=== PATIENT | female | born 1940 | race Caucasian/White ===

== ENCOUNTER 2018-02-12 11:26 | Outpatient (CLI) | payer MEDICARE | END 2018-02-12 11:27 | disposition home or self-care (01) | LOC: BICMAMMO 11:26 | PROVIDERS: ATTEND Internal Medicine Hematology & Oncology | DX: Z12.31 Encounter for screening mammogram for malignant neoplasm of breast (principal); Z85.3 Personal history of malignant neoplasm of breast | CPT/HCPCS: 77063; 77067 ==

== ENCOUNTER 2018-09-23 09:00 | Outpatient (CLI) | payer MEDICARE ==
--- NOTE | 2018-09-23 10:06 | ULT ---
RENAL ULTRASOUND: HISTORY: UTI. TECHNIQUE: Real-time imaging of the right and left kidneys was performed. FINDINGS: The right kidney measures 10.7 cm and the left kidney 12 cm in size. There are no signs of cyst or m ass. There is some mild left-sided hydronephrosis present. On the post void images, there is a pers istent cystic area in the lower pole region of the right renal pelvis. This could represent a parape lvic cyst. I do not believe this is really related to hydronephrosis. It is possible the left-sided changes are related to parapelvic cysts but are suspicious for hydronephrosis. These changes do per sist on the post void images. Post void bladder volume is 46 mL. IMPRESSION: Persistent, probable left-sided mild hydronephrosis, even after voiding. It is possible that these a re related to parapelvic cyst changes. If the patient is having left flank pain, further evaluation with CT may be helpful in assessment. POS: CORINE
== END 2018-09-23 09:01 | disposition home or self-care (01) ==
LOC: SCSULT 09:00
PROVIDERS: ATTEND Urology
DX: N39.0 Urinary tract infection, site not specified (principal)
CPT/HCPCS: 76770

== ENCOUNTER 2018-10-29 10:35 | Outpatient (CLI) | payer MEDICARE ==
--- NOTE | 2018-10-29 12:46 | BD ---
Exam: DEXA Bone Density Indications: Post-menopausal osteoporosis screening. Lumbar Spine: BMD (g/cm2) L1 1.034 T-Score: 0.4 L2 1.035 T-Score: 0.1 L3 1.175 T-Score: 0.8 L4 1.053 T-Score: -0.1 L1-L4 1.074 T-Score: 0.2 Femoral Neck: 0.832 T-Score: -0.2 Total Femur: 0.959 T-Score: -0.1 Prior total femur density on exam of 06-16-13 was recorded at 0.891. Previous total lumbar density on 06-16-13 was recorded at 1.020. Impression: Bone mineral density of the lumbar spine and femoral neck are both within normal range. POS: OFF
== END 2018-10-29 10:36 | disposition home or self-care (01) ==
LOC: BICMAMMO 10:35
PROVIDERS: ATTEND Family Medicine
DX: Z78.0 Asymptomatic menopausal state (principal)
CPT/HCPCS: 77080

== ENCOUNTER 2018-10-31 09:52 | Outpatient (CLI) | payer MEDICARE ==
--- NOTE | 2018-10-31 10:56 | CT ---
EXAM: Abdomen and pelvic CT scan with and without contrast: HISTORY: Hydronephrosis prior hysterectomy COMPARISON: None FINDINGS: Old granulomatous calcification right lower lobe. Liver: Unremarkable. Gallbladder:Multiple gallstones without evidence for acute cholecystitis. Pancreas:Unremarkable Spleen:Unremarkable. Adrenal glands:Unremarkable. Kidneys:No renal calculus or acute obstruction.Multiple bilateral renal parapelvic cysts. No renal hydronephrosis. Colonic diverticulosis without acute diverticulitis. 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 No CT evidence for acute appendicitis. The urinary bladder is unremarkable. No abscess, adenopathy, or abnormal fluid collection within the abdomen or pelvis. IMPRESSION: No evidence for renal hydronephrosis. Bilateral renal parapelvic cysts. Multiple gallstones without evidence for acute cholecystitis. Colonic diverticulosis without acute diverticulitis. Multilevel variable severity lumbar stenosis.
== END 2018-10-31 09:53 | disposition home or self-care (01) ==
LOC: CT 09:52
PROVIDERS: ATTEND Urology
DX: N13.39 Other hydronephrosis (principal); N39.0 Urinary tract infection, site not specified; N28.1 Cyst of kidney, acquired; K80.20 Calculus of gallbladder without cholecystitis without obstruction; K57.30 Diverticulosis of large intestine without perforation or abscess without bleeding; M48.061 Spinal stenosis, lumbar region without neurogenic claudication
CPT/HCPCS: 74178; 82565

== ENCOUNTER 2018-12-02 09:57 | Outpatient (CLI) | payer MEDICARE ==
--- NOTE | 2018-12-02 10:44 | ULT ---
EXAM: US Thyroid STANDARD PROVIDED CLINICAL HISTORY: Thyroid nodule COMPARISON: None FINDINGS: The right lobe of the thyroid gland measures 4.5 cm x 1.8 cm x 2 cm with the left lobe measuring 4.9 cm x 2.1 cm x 1.8 cm. The thyroid isthmus is thickened in the AP dimensions measuring 0.6 cm. Multiple scattered subcentimeter hypoechoic nodules are seen within the right lobe of thyroid gland w ith largest nodule seen in the superior pole measuring 0.9 cm. Three nodules are seen in the superior pole right lobe of thyroid gland with single nodule in the inferior pole right lobe of the t hyroid gland. There is a heterogeneous nodule seen in the region of the thyroid isthmus measuring 1.3 cm in greates t dimensions. Closely adjacent anechoic cystic lesion is present measuring 1.7 cm. Small hypoechoic nodule is seen in the superior pole left lobe of thyroid gland measuring 0.3 cm. The re is a calcified lesion demonstrating posterior shadowing within the superior pole measuring 0.9 cm in maximal dimensions. There is a dominant isoechoic nodule with peripheral hypoechoic rim seen wi thin the midportion left lobe of the thyroid gland which measures 1.4 cm in maximal dimensions. IMPRESSION: 1. TI-RADS level 5: Highly suspicious dominant nodule left lobe thyroid gland measuring 1.4 cm. Fine- needle aspiration is recommended. 2. Multinodular thyroid gland with multiple subcentimeter nodules including a calcified nodule in the left lobe of the thyroid gland.
== END 2018-12-02 09:58 | disposition home or self-care (01) ==
LOC: SCSULT 09:57
PROVIDERS: ATTEND Internal Medicine
DX: E04.2 Nontoxic multinodular goiter (principal)
CPT/HCPCS: 76536

== ENCOUNTER 2019-01-13 09:56 | Outpatient (CLI) | payer MEDICARE ==
--- NOTE | 2019-01-13 13:48 | RAD ---
CYSTOGRAM: HISTORY: Urinary frequency. Frequent urinary tract infection. COMPARISON: None. FINDINGS: The patient was administered 400 mL of contrast in a retrograde fashion. Contrast opacifies the urin carlton bladder, without filling defect. Multiple bladder diverticular are identified. The patient was able to void spontaneously. Visualized urethra is unremarkable. No evidence of reflux. Postvoid images demonstrate gallstones in the right upper quadrant. Bilateral diverticula are noted. No evidence of reflux. Right hip prosthesis is noted. Severe degenerative changes of the left hip. IMPRESSION: 1. No evidence of vesical ureteral reflux. 2. Multiple urinary bladder diverticulum. POS: OFF
== END 2019-01-13 09:57 | disposition home or self-care (01) ==
LOC: RAD 09:56
PROVIDERS: ATTEND Urology
DX: N95.2 Postmenopausal atrophic vaginitis (principal); R35.0 Frequency of micturition; N32.3 Diverticulum of bladder; Z87.440 Personal history of urinary (tract) infections
CPT/HCPCS: 51600; 74430

== ENCOUNTER 2019-02-13 10:03 | Outpatient (CLI) | payer MEDICARE ==
--- NOTE | 2019-02-13 11:51 | MMO ---
Bilateral MAMMO Bilat Screen [facility]. CLINICAL HISTORY: Patient is 78 years old and is seen for screening. The patient has no family history of breast cancer. The patient has a history of thyroid cancer at age 78 and malignant (generic) in the left breast at age 70. The patient has a history of left Excisional Biopsy at age 70 - malignant. VIEWS: The views performed were: bilateral craniocaudal with tomosynthesis and bilateral mediolateral oblique with tomosynthesis. FILMS COMPARED: The present examination has been compared to prior imaging studies performed at [facility] on 02/09/2017 and 02/12/2018, and at [facility] on 01/05/2015 and 01/19/2016. MAMMOGRAM FINDINGS: There are scattered fibroglandular densities. Finding 1: There are stable benign appearing calcifications seen in both breasts. Finding 2: There is a stable post-surgical scar seen in the left breast. There are no suspicious masses, suspicious calcifications, or new areas of architectural distortion. IMPRESSION: THERE IS NO MAMMOGRAPHIC EVIDENCE OF MALIGNANCY. A ROUTINE FOLLOW-UP MAMMOGRAM IN 1 YEAR IS RECOMMENDED. THE RESULTS OF THIS EXAM WERE SENT TO THE PATIENT. ACR BI-RADS Category 2 - Benign finding MAMMOGRAPHY NOTE: 1. A negative mammogram report should not delay a biopsy if a dominant of clinically suspicious mass is present. 2. Approximately 10% to 15% of breast cancers are not detected by mammography. 3. Adenosis and dense breasts may obscure an underlying neoplasm. Reported by: RUTH BENITEZ MD Electonically Signed: [id number]
== END 2019-02-13 10:04 | disposition home or self-care (01) ==
LOC: BICMAMMO 10:03
PROVIDERS: ATTEND Internal Medicine Hematology & Oncology
DX: Z12.31 Encounter for screening mammogram for malignant neoplasm of breast (principal); Z85.850 Personal history of malignant neoplasm of thyroid
CPT/HCPCS: 77063; 77067

== ENCOUNTER 2019-07-07 09:22 | Outpatient (CLI) | payer MEDICARE ==
--- NOTE | 2019-07-07 12:16 | RAD ---
Voiding cystourethrogram HISTORY: Bladder diverticula. Recurrent urinary tract infections. FINDINGS: Approximately 450 cc water-soluble contrast was carefully instilled into the urinary bladde r under fluoroscopic control. Multiple bladder diverticula are similar in appearance to the previous exam, with the largest projecting off the right posterior aspect of the urinary bladder. No evidence of vesicoureteral reflux. Female urethra has a normal appearance during micturition. After catheter removal, patient went to the restroom to fully empty the bladder. Final imaging shows approximately 100 cc residual contrast within the urinary bladder. Fluoroscopy time 0.5 minutes. IMPRESSION: Small to moderate post void urinary bladder residual. Multiple bladder diverticula, similar in appearance to the previous exam.
[2019-07-07] MEDS ORDERED: Iopamidol-370 76% 500 ML 1 ML ONE (13:36)
== END 2019-07-07 09:23 | disposition home or self-care (01) ==
LOC: RAD 09:22
PROVIDERS: ATTEND Urology
DX: N32.3 Diverticulum of bladder (principal); Z87.440 Personal history of urinary (tract) infections
CPT/HCPCS: 36415; 51600; 74455; 80048; Q9967

== ENCOUNTER 2019-08-07 10:42 | Outpatient (CLI) | payer MEDICARE ==
--- NOTE | 2019-08-07 12:19 | ULT ---
EXAM: US Thyroid STANDARD PROVIDED CLINICAL HISTORY: Thyroid cancer COMPARISON: 12/02/2018 FINDINGS: Interval left thyroid lobectomy. The right thyroid lobe measures approximately 4.3 x 1.8 x 2.1 cm. There are multiple hypoechoic and i soechoic nodules involving the right thyroid lobe, all of which measure less than a centimeter and appear not significantly changed with respect to the prior examination. No definite evidence for a ne w nodule. IMPRESSION: Stable appearing subcentimeter right thyroid lobe nodules.
== END 2019-08-07 10:43 | disposition home or self-care (01) ==
LOC: BICULT 10:42
PROVIDERS: ATTEND Internal Medicine Endocrinology, Diabetes & Metabolism
DX: C73 Malignant neoplasm of thyroid gland (principal); E04.2 Nontoxic multinodular goiter
CPT/HCPCS: 76536

== ENCOUNTER 2019-11-04 07:10 | Outpatient (CLI) | payer MEDICARE, OTHER ==
[2019-11-04 11:39] LABS: Hemoglobin 14.1 g/dL (12.0-16.0)
[2019-11-04 12:35] LABS: Chloride 104 mmol/L (98-107); Potassium 4.1 mmol/L (3.5-5.1); Sodium 139 mmol/L (136-145)
[2019-11-04 12:36] LABS: Calcium 9.7 mg/dL (7.8-10.44); Glucose 77 mg/dL (83-110)
[2019-11-04 12:37] LABS: Carbon Dioxide 25 mmol/L (23-31)
[2019-11-04 12:38] LABS: Anion Gap 14 mmol/L (10-20)
[2019-11-04 12:39] LABS: Calc. Creatinine Clearance 0 mL/min (70-130); Estimated GFR-MDRD 70
[2019-11-04 12:40] LABS: BUN (Urea Nitrogen) 21 mg/dL (9.8-20.1)
[2019-11-04 17:45] LABS: SARS-CoV-2 MS2 Positive; SARS-CoV-2 N Gene Negative; SARS-CoV-2 S Gene Negative; SARS-CoV-2 orf1ab Negative
== END 2019-11-04 07:11 | disposition home or self-care (01) ==
LOC: LABBT 07:10
PROVIDERS: ATTEND Otolaryngology Plastic Surgery within the Head & Neck
DX: Z01.818 Encounter for other preprocedural examination (principal); Z11.59 Encounter for screening for other viral diseases; J32.9 Chronic sinusitis, unspecified; J30.9 Allergic rhinitis, unspecified; J34.3 Hypertrophy of nasal turbinates; R09.82 Postnasal drip; J33.0 Polyp of nasal cavity; R09.81 Nasal congestion
CPT/HCPCS: 80048; 85014; 85018; 93005; U0003; 87635; 93010

== ENCOUNTER 2019-11-05 08:29 | Day surgery (SDC) | payer MEDICARE ==
[2019-11-04 09:36] VITALS: BMI 25.0
[2019-11-05] MEDS ORDERED: AFRIN NASAL MIST 15 ML BOT ONE ×2 (10:11→10:43)
[2019-11-05] MEDS ORDERED: Lidocaine 1% w/Epinephrine 1:100K 20 ML VIAL ONE (10:43)
[2019-11-05] MEDS ORDERED: Fentanyl 100 MCG/2 ML VIAL ONE ×3 (10:47→12:04)
[2019-11-05] MEDS ORDERED: Labetalol HCl 100 MG/20 ML VIAL ONE (12:19)
[2019-11-05] MEDS ORDERED: Lidocaine 1% PF 5 ML VIAL ONE (12:52)
[2019-11-05] MEDS ORDERED: Ondansetron PF 4 MG/2 ML Vial ONE (12:52)
[2019-11-05] MEDS ORDERED: PHENYLEPHRINE-NS 100 MCG/ML 10 ML SYRINGE ONE (12:52)
[2019-11-05] MEDS ORDERED: PROPOFOL 200 MG/20 ML VIAL ONE (12:52)
[2019-11-05] MEDS ORDERED: Dexamethasone 20 MG/5 ML VIAL ONE (12:52)
[2019-11-05] MEDS ORDERED: EPHEDRINE 25 MG/5 ML SYRINGE ONE (12:52)
[2019-11-05] MEDS ORDERED: HYDROcodone/Acetaminophen 5/325 mg Tablet ONE (13:45)
--- NOTE | 2019-11-06 07:16 | OP ---
DATE OF PROCEDURE: 11/05/2019 PREOPERATIVE DIAGNOSES: 1. Allergic fungal sinusitis. 2. Nasal polyposis. 3. Chronic rhinosinusitis. 4. Bilateral inferior turbinate hypertrophy. 5. Bilateral middle turbinate sunshine bullosa deformity. POSTOPERATIVE DIAGNOSES: 1. Allergic fungal sinusitis. 2. Nasal polyposis. 3. Chronic rhinosinusitis. 4. Bilateral inferior turbinate hypertrophy. 5. Bilateral middle turbinate sunhsine bullosa deformity. PROCEDURES PERFORMED: 1. Bilateral endoscopic sinus surgery, total ethmoidectomy with sphenoidotomies including removal of tissue. 2. Bilateral endoscopic sinus surgery, maxillary antrostomies with removal of tissue. 3. Bilateral endoscopic sinus surgery, frontal sinusotomy. 4. Bilateral inferior turbinate submucosal resection. 5. LandmarX stereotactic-guided cranial base surgery. ESTIMATED BLOOD LOSS: 20 mL. COMPLICATIONS: None. ANESTHESIA: GETA. DESCRIPTION OF PROCEDURE: The patient was taken to the operating room and placed supine on the table. General endotracheal anesthesia was obtained by the Anesthesia staff. Tube was secured in the left lower lip. The patient was placed in a beach-chair position and was prepped and draped in standard surgical fashion. I-DISPO stereotactic navigational device was set up and calibrated. It was noted to be within 1 mm of accuracy bilaterally. Following this, a 0-degree endoscope along with the image-guided instruments were advanced in the nasal cavity. The middle turbinates were medialized and large sunshine bullosa deformity of the middle turbinates were resected bilaterally using 0-degree microdebrider and sickle blade. This was done by removal of the lateral portion of the middle turbinates bilaterally. The uncinate process was then anteriorly fractured bilaterally and was removed using the 0-degree microdebrider and the up-biting Blakesley's bilaterally. Following this, the natural maxillary sinus ostia were identified and was widened using the ball-ended probe and then was further widened using the 40-degree microdebrider and straight Blakesley forceps bilaterally. Polypoid tissue was removed from the maxillary sinus ostia and maxillary sinus bilaterally. Allergic fungal debris was also removed from the right side. Following this, the ethmoidal bulla was identified and was punctured on its medial and inferior aspect with the 0-degree microdebrider and the ethmoidal bulla was removed bilaterally. The ground lamella was identified and was punctured using the 0-degree microdebrider into the posterior ethmoidal cells. Working from posterior to anterior, the ethmoidal cells were opened using the microdebrider and the stereotactic-guided device. Following this, the sphenoid sinus was identified and the anterior wall of the sphenoid sinus was punctured using the 0-degree microdebrider. Polypoid tissue and bone were removed from this area, widening the sphenoidotomies in a medial and inferior direction bilaterally. Following this, 45-degree endoscope and the curved microdebrider blade were used to further open the frontal sinus ostia and frontal sinus recess bilaterally under stereotactic guidance. Following this, steroid implants were placed in the frontal sinus ostia bilaterally and the maxillary sinus ostia bilaterally. The nasal cavity was irrigated and NasoPore packing was placed within the middle meatus bilaterally. Inferior turbinates were then punctured on the anterior-inferior aspect and submucosal resection was performed of the anterior and inferior aspect of the inferior turbinates bilaterally. The patient tolerated the procedure well. Job ID: [id number]
== END 2019-11-05 14:15 | disposition home or self-care (01) ==
LOC: SDC 08:29
PROVIDERS: ATTEND Otolaryngology Plastic Surgery within the Head & Neck
PROC: 8E09XBZ Computer Assisted Procedure of Head and Neck Region (ICD-10-PCS; principal; 2019-11-05)
PROC: 09BR8ZZ Excision of Left Maxillary Sinus, Via Natural or Artificial Opening Endoscopic (ICD-10-PCS; 2019-11-05)
PROC: 09BW8ZZ Excision of Right Sphenoid Sinus, Via Natural or Artificial Opening Endoscopic (ICD-10-PCS; 2019-11-05)
PROC: 09BX8ZZ Excision of Left Sphenoid Sinus, Via Natural or Artificial Opening Endoscopic (ICD-10-PCS; 2019-11-05)
PROC: 09BQ8ZZ Excision of Right Maxillary Sinus, Via Natural or Artificial Opening Endoscopic (ICD-10-PCS; 2019-11-05)
PROC: 099T8ZZ Drainage of Left Frontal Sinus, Via Natural or Artificial Opening Endoscopic (ICD-10-PCS; 2019-11-05)
PROC: 099S8ZZ Drainage of Right Frontal Sinus, Via Natural or Artificial Opening Endoscopic (ICD-10-PCS; 2019-11-05)
PROC: 09TV8ZZ Resection of Left Ethmoid Sinus, Via Natural or Artificial Opening Endoscopic (ICD-10-PCS; 2019-11-05)
PROC: 09TU8ZZ Resection of Right Ethmoid Sinus, Via Natural or Artificial Opening Endoscopic (ICD-10-PCS; 2019-11-05)
PROC: 09TL8ZZ Resection of Nasal Turbinate, Via Natural or Artificial Opening Endoscopic (ICD-10-PCS; 2019-11-05)
DX: J32.4 Chronic pansinusitis (principal); J34.3 Hypertrophy of nasal turbinates; J34.89 Other specified disorders of nose and nasal sinuses; J33.9 Nasal polyp, unspecified; J30.89 Other allergic rhinitis; E89.0 Postprocedural hypothyroidism; I10 Essential (primary) hypertension; M19.90 Unspecified osteoarthritis, unspecified site; M06.9 Rheumatoid arthritis, unspecified; M85.80 Other specified disorders of bone density and structure, unspecified site; Z86.010 Personal history of colon polyps; Z87.891 Personal history of nicotine dependence; Z79.82 Long term (current) use of aspirin; Z79.899 Other long term (current) drug therapy; Z88.1 Allergy status to other antibiotic agents; Z88.8 Allergy status to other drugs, medicaments and biological substances; Z91.040 Latex allergy status
CPT/HCPCS: C2625; J1100; J2001; J2405; J2704; J3010

== ENCOUNTER 2019-11-14 10:56 | Outpatient (CLI) | payer MEDICARE ==
--- NOTE | 2019-11-14 13:42 | ULT ---
THYROID ULTRASOUND: 11/14/19 INDICATION: History of thyroid cancer and thyroid nodules. COMPARISON: Prior exam dated 08/07/19. FINDINGS: The right thyroid lobe measures 4.2 x 2.0 x 1.8 cm. The thyroid isthmus measures 0.4 cm. Left thyroid lobe is surgically absent. There is diffuse heterogeneity of the right thyroid gland with multiple nodules. The 5.5 x 4.7 hypoechoic nodule involving the inferior pole of the right thyroid gland is stable appe aring. There is a mixed echogenicity 9 x 5 mm solid nodule in the superior pole of the right thyroid gland w hich is stable appearing. There is an additional heterogeneous solid nodule measuring 7 mm within the superior pole of the righ t thyroid gland which is stable appearing. There is a 7 x 5 mm x 5 mm solid nodule with some punctate internal echogenicity seen within the supe rior pole of the right thyroid gland that was not definitely visualized on the prior examination. There is a 5 mm nodule seen within the medial aspect of the right mid thyroid gland. There is a 6 mm solid nodule seen within the inferior medial aspect of the right thyroid gland which was not definite ly seen on the comparison examination. Small 4 mm hypoechoic nodule involving the isthmus is stable. IMPRESSION: Findings of multinodular goiter. Majority of the nodule seen on the prior examination has been stable appearing. There is some improved resolution of the right thyroid gland demonstrating some nodules w ithin the inferior medial right thyroid lobe as well as within the superior aspect of the right thyro id lobe are present and consistent with small TI-RADS 3 lesions. These are all subcentimeter in size. A thyroid ultrasound follow-up in one year is recommended. POS: Shawna
== END 2019-11-14 10:57 | disposition home or self-care (01) ==
LOC: SCSULT 10:56
PROVIDERS: ATTEND Internal Medicine Endocrinology, Diabetes & Metabolism
DX: Z08 Encounter for follow-up examination after completed treatment for malignant neoplasm (principal); E04.2 Nontoxic multinodular goiter; Z85.850 Personal history of malignant neoplasm of thyroid
CPT/HCPCS: 76536

== ENCOUNTER 2020-02-17 11:20 | Outpatient (CLI) | payer MEDICARE ==
--- NOTE | 2020-02-17 11:51 | MMO ---
Bilateral MAMMO Bilat Screen [facility]. CLINICAL HISTORY: Patient is 79 years old and is seen for screening. The patient has no family history of breast cancer. The patient has a history of thyroid cancer at age 78 and malignant (generic) in the left breast at age 70. The patient has a history of left Excisional Biopsy at age 70 - malignant. VIEWS: The views performed were: bilateral craniocaudal with tomosynthesis and bilateral mediolateral oblique with tomosynthesis. FILMS COMPARED: The present examination has been compared to prior imaging studies performed at [facility] on 02/09/2017, 02/12/2018 and 02/13/2019, and at [facility] on 01/19/2016. This study has been interpreted with the assistance of computer-aided detection. MAMMOGRAM FINDINGS: There are scattered fibroglandular densities. Finding 1: There are benign appearing calcifications seen in both breasts. Finding 2: There is a stable post-surgical scar seen in the left breast. There are no suspicious masses, suspicious calcifications, or new areas of architectural distortion. IMPRESSION: THERE IS NO MAMMOGRAPHIC EVIDENCE OF MALIGNANCY. A ROUTINE FOLLOW-UP MAMMOGRAM IN 1 YEAR IS RECOMMENDED. THE RESULTS OF THIS EXAM WERE SENT TO THE PATIENT. ACR BI-RADS Category 2 - Benign finding MAMMOGRAPHY NOTE: 1. A negative mammogram report should not delay a biopsy if a dominant of clinically suspicious mass is present. 2. Approximately 10% to 15% of breast cancers are not detected by mammography. 3. Adenosis and dense breasts may obscure an underlying neoplasm. Reported by: CAM DESHPANDE MD Electonically Signed: [id number]
== END 2020-02-17 11:21 | disposition home or self-care (01) ==
LOC: BICMAMMO 11:20
PROVIDERS: ATTEND Internal Medicine Hematology & Oncology
DX: Z12.31 Encounter for screening mammogram for malignant neoplasm of breast (principal); Z85.3 Personal history of malignant neoplasm of breast; Z85.850 Personal history of malignant neoplasm of thyroid
CPT/HCPCS: 77063; 77067

== ENCOUNTER 2020-06-28 15:14 | Outpatient (CLI) | payer MEDICARE ==
--- NOTE | 2020-06-28 15:42 | RAD ---
XR Knee Lt 4 View STANDARD: 06/28/2020 3:22 PM CLINICAL INDICATION: Knee pain COMPARISON: None. FINDINGS: Bones: There is diffuse osteopenia Joints: There are marginal osteophytes affecting all major compartments of the left knee. There is mi ld joint capsular distention. There is apparent moderate narrowing involving the lateral femoral tibial joint compartment. There is chondrocalcinosis seen involving the hyaline and fibrocartilage of the left knee joint. Soft Tissue: There are moderate vascular calcifications seen involving the visualized vasculature. IMPRESSION: Moderate left knee osteoarthrosis.
--- NOTE | 2020-06-28 15:44 | RAD ---
XR Knee Rt 4 View STANDARD: 06/28/2020 3:22 PM CLINICAL INDICATION: Right knee pain COMPARISON: None. FINDINGS: Bones: There is diffuse osteopenia Joints: There is moderate right knee osteoarthrosis with moderate lateral femorotibial joint compartm ental narrowing. There are multiple intra-articular bodies seen within the posterior aspect of the knee joint (approximately 4 separate bodies). The largest measures 1.3 cm in its greatest length. The re is mild chondrocalcinosis. Soft Tissue: There are mild vascular calcifications seen involving the visualized vasculature.. IMPRESSION: Moderate right knee osteoporosis with intra-articular bodies.
== END 2020-06-28 15:15 | disposition home or self-care (01) ==
LOC: SCSRAD 15:14
PROVIDERS: ATTEND Family Medicine
DX: M25.561 Pain in right knee (principal); M25.562 Pain in left knee; M81.0 Age-related osteoporosis without current pathological fracture; M25.861 Other specified joint disorders, right knee; M17.12 Unilateral primary osteoarthritis, left knee

== ENCOUNTER 2020-11-16 13:01 | Outpatient (CLI) | payer MEDICARE ==
[2020-11-16 14:29] LABS: Bilirubin Neg (Negative); Blood, Urine Negative (Negative); Clarity Clear (Clear); Glucose, Urine (Dipstick) Normal (Negative); Ketone, Urine Negative (Negative); Leukocyte Negative (Negative); Nitrite Negative (Negative); Protein, Urine (Dipstick) Negative (Neg-Trace); Urobilinogen Normal mg/dL (Less than 2)
[2020-11-16 16:46] LABS: RBC/HPF 0-3 HPF (0-3); Squamous Epithelial 0-3 HPF (0-3); WBC/HPF 0-3 HPF (0-3)
[2020-11-16 16:47] LABS: Bacteria/HPF Rare-Few HPF (None Seen)
[2020-11-17 06:54] LABS: SARS-CoV-2 PCR by NAA Not Detected (NotDetected)
== END 2020-11-16 13:02 | disposition home or self-care (01) ==
LOC: LABBT 13:01
PROVIDERS: ATTEND Orthopaedic Surgery Hand Surgery
DX: Z01.812 Encounter for preprocedural laboratory examination (principal); G56.01 Carpal tunnel syndrome, right upper limb; Z20.822 Contact with and (suspected) exposure to COVID-19
CPT/HCPCS: 81001; U0003; U0005

== ENCOUNTER 2020-12-21 15:35 | Outpatient (CLI) | payer MEDICARE ==
[2020-12-21 16:23] LABS: #Eosinphils 0.2 10x3/uL (0.0-0.5); #Monocytes 0.6 10x3/uL (0.0-1.1); #Neutrophils 5.5 10x3/uL (1.5-8.4); %Basophils 0.5 % (0.0-2.0); %Eosinophils 2.9 % (0.0-6.0); %Lymphocytes 20.6 % (18.0-47.0); %Monocytes 7.4 % (0.0-10.0); %Neutrophils 68.4 % (40.0-75.0); Hemoglobin 13.6 g/dL (12.0-15.5); Mean Corpuscular HGB CONC 32.9 g/dL (32.0-36.0); Mean Corpuscular Hemoglobin 32.2 pg (27.0-33.0); Mean Corpuscular Volume 97.9 fl (81.6-98.3); Mean Platelet Volume 11.1 fl (7.4-10.4); Platelet Count 255 10x3/uL (150-450); RBC Distribution Width 12.7 % (11.5-14.5); Red Blood Cell (RBC) Count 4.22 10x6/uL (3.90-5.03); White Blood Cell (WBC) Count 8.1 10x3/uL (3.5-10.5)
[2020-12-21 16:36] LABS: Bilirubin Neg (Negative); Blood, Urine Negative (Negative); Clarity Clear (Clear); Glucose, Urine (Dipstick) Normal (Negative); Ketone, Urine Negative (Negative); Leukocyte Negative (Negative); Nitrite Negative (Negative); Protein, Urine (Dipstick) Negative (Neg-Trace); Urobilinogen Normal mg/dL (Less than 2)
[2020-12-21 17:00] LABS: RBC/HPF 0-3 HPF (0-3); WBC/HPF 0-3 HPF (0-3)
[2020-12-21 17:01] LABS: Bacteria/HPF None Seen HPF (None Seen); Squamous Epithelial 0-3 HPF (0-3)
[2020-12-22 15:40] LABS: SARS-CoV-2 PCR by NAA Not Detected (NotDetected)
== END 2020-12-21 15:36 | disposition home or self-care (01) ==
LOC: LABBT 15:35
PROVIDERS: ATTEND Orthopaedic Surgery Hand Surgery
DX: Z01.812 Encounter for preprocedural laboratory examination (principal); G56.01 Carpal tunnel syndrome, right upper limb; Z20.822 Contact with and (suspected) exposure to COVID-19
CPT/HCPCS: 81001; 85025; U0003; U0005

== ENCOUNTER 2021-08-26 07:05 | Day surgery (SDC) | payer MEDICARE ==
[2021-08-19 14:06] VITALS: BMI 26.1
[2021-08-26] MEDS ORDERED: Bupivacaine PF 0.5% 30 ML VIAL ONE (08:10)
[2021-08-26] MEDS ORDERED: Bacitracin Zinc Ointment 30 gm TUBE ONE (08:10)
[2021-08-26] MEDS ORDERED: Betamet Acet/Betamet Na Ph 30 MG/5 ML VIAL ONE (08:10)
[2021-08-26] MEDS ORDERED: ceFAZolin 2 GM/Dextrose 50 ML IVPB ONE (09:08)
[2021-08-26] MEDS ORDERED: hydrALAZINE 20 MG/ML VIAL ONE (10:43)
== END 2021-08-26 12:30 | disposition home or self-care (01) ==
LOC: SDC 07:05
PROVIDERS: ATTEND Orthopaedic Surgery Hand Surgery
PROC: 01N50ZZ Release Median Nerve, Open Approach (ICD-10-PCS; principal; 2021-08-26)
PROC: 0LB80ZZ Excision of Left Hand Tendon, Open Approach (ICD-10-PCS; 2021-08-26)
PROC: 0LB80ZZ Excision of Left Hand Tendon, Open Approach (ICD-10-PCS; 2021-08-26)
DX: G56.02 Carpal tunnel syndrome, left upper limb (principal); M65.332 Trigger finger, left middle finger; M65.842 Other synovitis and tenosynovitis, left hand; M65.311 Trigger thumb, right thumb; M18.0 Bilateral primary osteoarthritis of first carpometacarpal joints; I10 Essential (primary) hypertension; M41.9 Scoliosis, unspecified; E78.5 Hyperlipidemia, unspecified; M06.9 Rheumatoid arthritis, unspecified; E89.2 Postprocedural hypoparathyroidism; Z85.3 Personal history of malignant neoplasm of breast; Z87.891 Personal history of nicotine dependence; Z79.899 Other long term (current) drug therapy; Z88.1 Allergy status to other antibiotic agents; Z88.8 Allergy status to other drugs, medicaments and biological substances; Z91.040 Latex allergy status
CPT/HCPCS: 88304; J0360; J0690; J0702; S0020

== ENCOUNTER 2022-04-05 14:43 | Outpatient (CLI) | payer OTHER | END 2022-04-05 14:44 | disposition home or self-care (01) | LOC: SCSMRI 14:43 | PROVIDERS: ATTEND Family Medicine | DX: M51.16 Intervertebral disc disorders with radiculopathy, lumbar region (principal); M51.37 Other intervertebral disc degeneration, lumbosacral region; M48.061 Spinal stenosis, lumbar region without neurogenic claudication; M48.07 Spinal stenosis, lumbosacral region | CPT/HCPCS: 72148 ==

== ENCOUNTER 2023-01-25 12:20 | Outpatient (CLI) | payer OTHER | END 2023-01-25 12:21 | disposition home or self-care (01) | LOC: SCSRAD 12:20 | PROVIDERS: ATTEND Nurse Practitioner Family | DX: R05.1 Acute cough (principal) | CPT/HCPCS: 71046 ==

== ENCOUNTER 2023-03-08 16:00 | Outpatient (CLI) | payer MEDICARE, OTHER | END 2023-03-08 16:01 | disposition home or self-care (01) | LOC: SLEEPLAB 16:00 | PROVIDERS: ATTEND Family Medicine | DX: G47.00 Insomnia, unspecified (principal); R53.83 Other fatigue; F41.9 Anxiety disorder, unspecified; R06.83 Snoring; I10 Essential (primary) hypertension; M06.9 Rheumatoid arthritis, unspecified; E78.5 Hyperlipidemia, unspecified; M85.80 Other specified disorders of bone density and structure, unspecified site; K57.92 Diverticulitis of intestine, part unspecified, without perforation or abscess without bleeding | CPT/HCPCS: 95811 ==

== ENCOUNTER 2024-05-02 15:45 | Outpatient (CLI) | payer OTHER | END 2024-05-02 15:46 | disposition home or self-care (01) | LOC: SCSRAD 15:45 | PROVIDERS: ATTEND Family Medicine | DX: J18.9 Pneumonia, unspecified organism (principal) | CPT/HCPCS: 71046 ==

== ENCOUNTER 2025-03-04 12:33 | Outpatient (CLI) | payer OTHER | END 2025-03-04 12:34 | disposition home or self-care (01) | LOC: BICMAMMO 12:33 | PROVIDERS: ATTEND Internal Medicine Hematology & Oncology | DX: Z12.31 Encounter for screening mammogram for malignant neoplasm of breast (principal); C73 Malignant neoplasm of thyroid gland; M85.851 Other specified disorders of bone density and structure, right thigh; M85.852 Other specified disorders of bone density and structure, left thigh; Z98.890 Other specified postprocedural states; Z85.3 Personal history of malignant neoplasm of breast | CPT/HCPCS: 77063; 77067; 77080 ==